=== PATIENT | male | born 1955 | race Caucasian/White ===

== ENCOUNTER 2017-04-12 10:25 | Day surgery (SDC) | payer BC ==
[2017-04-12] MEDS ORDERED: Sodium Chloride 0.9% 10 ML Syringe FLUSH PRN (10:30)
[2017-04-12] MEDS ORDERED: Lactated Ringers 1,000 ML IV SCH (10:30)
[2017-04-12] MEDS ORDERED: fentaNYL 100 MCG/2 ML SDV ONE ×2 (11:55→12:03)
[2017-04-12] MEDS ORDERED: Midazolam 1 MG/ML 2 ML SDV ONE ×2 (11:55→12:03)
[2017-04-12] MEDS ORDERED: Propofol 200 MG/20 ML SDV ONE ×2 (11:56→12:03)
[2017-04-12] MEDS ORDERED: ceFAZolin 1 GM Vial ONE (12:03)
--- NOTE | 2017-04-12 12:03 | PCM.PN ---
- General Info Date of Service: 04/12/17 - Review of Systems Systems Review Comment:: 61-year-old male referred by Osmin Eng for colonoscopy. The patient states it is been several years since his last colonoscopy. He has been noted to have a change in bowel habits recently. He is medically stable to proceed today. His recent history and physical is reviewed and there is no significant change in that compared to today. I have discussed the proposed colonoscopy with the patient. He agrees to proceed accepting risks. - Patient Data Vitals - Most Recent: Last Vital Signs Temp 97.8 F 04/12/17 10:44 Pulse Resp 18 04/12/17 10:44 BP 118/62 04/12/17 10:44 Pulse Ox 96 04/12/17 10:44 Weight - Most Recent: 120.202 kg Lab Results Last 24 Hours: Laboratory Results - last 24 hr 04/12/17 Range/Units 10:35 POC Glucose 102 (65-110) mg/dl Med Orders - Current: Current Medications Lactated Ringer's (Ringers, Lactated) 1,000 mls @ 70 mls/hr IV ASDIRECTED FRANCO Last Admin: 04/12/17 10:46 Dose: 70 mls/hr Sodium Chloride (Saline Flush) 10 ml FLUSH ASDIRECTED PRN PRN Reason: Keep Vein Open Discontinued Medications Fentanyl (Sublimaze) Confirm Administered Dose 100 mcg .ROUTE .STK-MED ONE Stop: 04/12/17 11:56 Midazolam HCl (Versed 1 Mg/Ml) Confirm Administered Dose 2 mg .ROUTE .STK-MED ONE Stop: 04/12/17 11:56 Propofol (Diprivan 20 Ml) Confirm Administered Dose 200 mg .ROUTE .STK-MED ONE Stop: 04/12/17 11:57 - Problem List Review Problem List Initiated/Reviewed/Updated: Yes - Assessment Assessment:: Change in bowel habits - Plan Plan:: Colonoscopy
--- NOTE | 2017-04-12 12:48 | PCM.OPNOTE ---
- General Post-Op/Procedure Note Date of Surgery/Procedure: 04/12/17 Operative Procedure(s): Colonoscopy with polypectomy Findings: Small ascending colon polyp Moderate diverticulosis Pre Op Diagnosis: Change in bowel habits Post-Op Diagnosis: Colon polyp. Diverticulosis Anesthesia Technique: MAC Primary Surgeon: Amor Castorena Pathology: colon polyp Output, Urine Amount: 0 EBL in mLs: 0 Complications: None Condition: Good
[2017-04-12 13:36] VITALS: BP 109/69
--- NOTE | 2017-04-13 13:18 | OR ---
Date of Procedure: 04/12/2017 PREOPERATIVE DIAGNOSIS: Change in bowel habits. POSTOPERATIVE DIAGNOSES: 1. Colon polyp. 2. Diverticulosis. OPERATION PERFORMED: Colonoscopy with polypectomy. INDICATIONS FOR SURGERY: This 61-year-old male was referred for colonoscopy. It has been several years since his last colon exam and it is noted that he has had a recent change in bowel habits. He was evaluated and felt to be medically stable to proceed with colonoscopy. FINDINGS: The patient has a single ascending colon polyp which is 7 mm and sessile in configuration. He also has a moderate degree of diverticulosis, mainly in the sigmoid area, but with scattered diverticula in the transverse and descending colon as well. This does not appear to be acutely inflamed otherwise complicated. DESCRIPTION OF PROCEDURE: The patient was taken to the operating room. He was given intravenous sedation, and with him in the left lateral decubitus position, digital rectal exam was performed, showing no rectal masses. The Olympus colonoscope was inserted into the rectum. A retroflexed examination of the rectal canal was performed. The scope was then carefully advanced under direct visualization through the entire length of the colon until the cecum was reached. Cecal acquisition was confirmed by noting the normal internal cecal anatomy including the appendiceal orifice and ileocecal valve and also cannulating the ileocecal valve and examining the distal portion of the terminal ilium. The light was also noted to transilluminate the abdominal wall and the right lower quadrant. After carefully examining the cecum, the scope was slowly withdrawn, and in the ascending colon, the above-described polyp was identified. This was removed with a cautery snare and retrieved into a polyp trap. Withdrawal of the scope was continued until the entire colon and rectum had been fully re-examined. With no sign of any complicating process, the scope was removed and the patient was taken from the operating room in satisfactory condition. ESTIMATED BLOOD LOSS: Zero. COMPLICATIONS: None. PROGNOSIS: Good. SAMUEL Castorena MD /[id number]
== END 2017-04-12 14:15 | disposition home or self-care (01) ==
LOC: LL.SDS 10:25
PROVIDERS: ATTEND Surgery
DX: D12.2 Benign neoplasm of ascending colon (principal); K57.30 Diverticulosis of large intestine without perforation or abscess without bleeding; E11.42 Type 2 diabetes mellitus with diabetic polyneuropathy; Z90.49 Acquired absence of other specified parts of digestive tract; Z96.651 Presence of right artificial knee joint; Z79.82 Long term (current) use of aspirin; Z79.899 Other long term (current) drug therapy
CPT/HCPCS: 45385; 82962; J0690; J2250; J2704; J3010; J7120

== ENCOUNTER 2017-05-08 19:46 | Emergency (ER) | payer BC ==
[2017-05-08 20:00] VITALS: BP 138/69
[2017-05-08] MEDS ORDERED: methylPREDNISolone Acetate 80 MG/ML SDV IM ONE (20:06)
--- NOTE | 2017-05-08 20:06 | EDM.PDOC ---
ED HPI GENERAL MEDICAL PROBLEM - General Chief Complaint: Lower Extremity Injury/Pain Stated Complaint: right ankle pain Time Seen by Provider: 05/08/17 19:55 Source of Information: Reports: Patient, Family (), Old Records ([facility] chart/EMR) - History of Present Illness INITIAL COMMENTS - FREE TEXT/NARRATIVE: Patient was brought to the emergency room via private automobile by his for evaluation of progressive nonspecific sharp 8/10 mostly posterior right ankle pain. Symptoms started at about 15:20 hours this afternoon with no treatment to this point. Patient has not injured this extremity in the past, although he does have a known history of osteoarthritis, however no history significant gout attacks. He has started to use crutches for his pain control with no history of acute injury, fall, paresthesias, neurological deficits, etc. The patient denies any chest pain/pressure, heart flutter, dizziness, orthostasis, orthopnea, diaphoresis, paresthesias, recent decreased exercise tolerance, or any other anginal-type symptoms. No recent history of abdominal pain, heartburn, nausea, diarrhea, melena, gross hematochezia, or any food intolerance, including fatty foods, etc.. The patient also denies any recent fever, cough, wheezing, dyspnea, etc.. Onset: Today, Gradual Onset Date: 05/08/17 Onset Time: 15:20 Duration: Constant, Getting Worse Location: Reports: Lower Extremity, Right. Denies: Radiates to Quality: Reports: Ache, Same as Previous Episode, Sharp Severity: Moderate Improves with: Reports: Rest Worsens with: Reports: Movement Context: Reports: Other (None) Associated Symptoms: Denies: Confusion, Chest Pain, Cough, Diaphoresis, Fever/ Chills, Nausea/Vomiting, Shortness of Breath, Syncope, Weakness Treatments PICTURE ENGRAVER: Reports: Other (see below) (None) Right Ankle Pain Score (Numeric/FACES): 3 (13 at rest with 8/10 pain with weightbearing) - Related Data Allergies Allergy/AdvReac Type Severity Reaction Status Date / Time No Known Allergies Allergy Verified 05/08/17 19:52 Home Meds: Home Meds Aspirin [Halfprin] 81 mg PO DAILY 06/25/14 [History] Fosinopril [Monopril] 10 mg PO DAILY 06/25/14 [History] Glimepiride [Amaryl] 1 mg PO DAILY 06/25/14 [History] Multivitamin [One-A-Day Essential] 1 tab PO DAILY 06/25/14 [History] Ubidecarenone [Co Q-10] 50 mg PO BID 06/25/14 [History] atorvaSTATin [Lipitor] 10 mg PO BEDTIME 06/25/14 [History] Past Medical History HEENT History: Reports: Impaired Vision, Other (See Below) Other HEENT History: Patient wears glasses Cardiovascular History: Reports: Arrhythmia, High Cholesterol, Hypertension, Other (See Below) Other Cardiovascular History: Complete right bundle branch block/bifascicular bundle-branch block; dyslipidemia Respiratory History: Reports: Intubation, Previous, Sleep Apnea, Other (See Below) Other Respiratory History: Patient has been compliant with his CPAP Gastrointestinal History: Reports: Colon Polyp, Diverticulosis, Other (See Below ) Other Gastrointestinal History: Moderate diverticulosis by colonoscopy with excision of tubular adenoma from the ascending colon on 04/12/17 Genitourinary History: Reports: Other (See Below) Other Genitourinary History: 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 Musculoskeletal History: Reports: Arthritis, Gout, Osteoarthritis, Other (See Below) Other Musculoskeletal History: 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 attacks in a: 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 Neurological History: Reports: Neuropathy, Diabetic, Neuropathy, Peripheral, Seizure, Other (See Below) Other Neuro History: Febrile seizures as a child; restless leg syndrome Psychiatric History: Reports: ADD, ADHD, Anxiety, Depression, Other (See Below) Other Psychiatric History: History of childhood anxiety depression disorder Endocrine/Metabolic History: Reports: Diabetes, Type II - Past Surgical History HEENT Surgical History: Reports: Adenoidectomy, Tonsillectomy, Other (See Below) Other HEENT Surgeries/Procedures: Tonsillectomy and adenoidectomy as a child GI Surgical History: Reports: Appendectomy, Colonoscopy, Hernia, Abdominal, Polypectomy, Other (See Below) Other GI Surgeries/Procedures: Appendectomy at age 11; last colonoscopy on with removal of tubular adenoma from the ascending colon with previous colonoscopy on 11/15/06: Umbilical hernia repair on 06/25/14 Musculoskeletal Surgical History: Reports: Arthroscopic Knee, Arthroscopic Procedure, Knee Replacement, Other (See Below). Denies: Joint Replacement, ORIF Other Musculoskeletal Surgeries/Procedures:: Right arthroscopic knee surgery in 2004 with left arthroscopic knee surgery in 2001; right knee total arthroplasty on 12/04/16 with left knee total arthroplasty on 04/27/16 - Past Imaging History Past Imaging History: Reports: MRI (MRI of the right knee on 04/22/13; MRI of the left knee on 04/29/13), Sleep Study (08/29/06), Stress Testing (Cardiolite stress test on 10/04/06 with ejection fraction of 52%), Venous Doppler (Venous Doppler study of the left leg on 08/18/16) Social & Family History - Family History Musculoskeletal: Reports: Osteoarthritis, Other (See Below) Other Musculoskeletal Family History: Mother with osteoarthritis Neurological: Reports: Parkinson's, Seizure, Other (See Below) Other Neurological Family History: Paternal grandfather with Parkinson's disease ; son with febrile seizures and subsequently childhood epilepsy Psychiatric: Reports: Anxiety, Depression, Suicide Attempt, Other (See Below) Other Psychiatric Family History: Son with possible anxiety depression disorder ; father with anxiety depression disorder and successful suicide at age 45 Endocrine/Metabolic: Reports: Diabetes, type II, Other (See Below) Other Endocrine/Metabolic Family History: Sister with diabetes mellitus - Tobacco Use Smoking Status *Q: Never Smoker Used Tobacco, but Quit: No Smoking Cessation Information Provided To Patient: No Second Hand Smoke Exposure: No - Alcohol Use Alcohol Use History: Yes Days Per Week of Alcohol Use: 0 Number of Drinks Per Day: 1 (Very occasional, one drink per year) Total Drinks Per Week: 0 Alcohol Use Frequency: Rarely - Recreational Drug Use Recreational Drug Use: No Drug Use in Last 12 Months: No - Living Situation & Occupation Living situation: Reports: (1977, 2 children) 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 ED EXAM, GENERAL - Physical Exam Exam: See Below Exam Limited By: No Limitations General Appearance: Alert, WD/WN, No Apparent Distress Head: Atraumatic Neck: Normal Inspection, Supple, Non-Tender, Full Range of Motion. No: Lymphadenopathy (L), Lymphadenopathy (R), Thyromegaly Respiratory/Chest: No Respiratory Distress, Lungs Clear, Normal Breath Sounds, No Accessory Muscle Use, Chest Non-Tender. No: Pleural Rub, Retractions Cardiovascular: Normal Peripheral Pulses, Regular Rate, Rhythm, No Edema, No Gallop, No JVD, No Murmur, No Rub. No: Gallop/S3, Gallop/S4, Friction Rub Peripheral Pulses: 2+: Radial (L), Radial (R), Dorsalis Pedis (L), Dorsalis Pedis (R) GI/Abdominal: Normal Bowel Sounds, Soft, Non-Tender, No Organomegaly, No Distention, No Abnormal Bruit, No Mass, Pelvis Stable, Other (Obese) (Male) Exam: Deferred Rectal (Males) Exam: Deferred Back Exam: Normal Inspection, Full Range of Motion. No: CVA Tenderness (L), CVA Tenderness (R), Muscle Spasm Extremities: Normal Range of Motion, No Pedal Edema, Normal Capillary Refill, Leg Pain (Mild palpation pain over the Achilles tendon with no evidence of tear , swelling, lesion, local warming, etc.; no joint instability in the ankle, etc. ; Mild pain with ambulation). No: Joint Swelling, Nicholas's Sign Neurological: Alert, Oriented, CN II-XII Intact, Normal Cognition, Normal Gait, No Motor/Sensory Deficits Psychiatric: Normal Affect, Normal Mood Skin Exam: Warm, Dry, Intact, Normal Color, No Rash. No: Diaphoretic, Wound/ Incision Lymphatic: No Adenopathy Course - Vital Signs Last Recorded V/S: Last Vital Signs Temp 36.6 C 05/08/17 19:48 Pulse 73 05/08/17 19:59 Resp 18 05/08/17 19:48 BP 138/69 05/08/17 19:59 Pulse Ox 98 05/08/17 19:48 Vital Signs - 24 hr 05/08/17 05/08/17 19:48 19:59 Temperature [ 36.6 C Oral] Pulse, 71 73 Peripheral [ Right Brachial] Respiratory 18 Rate Blood Pressure 161/67 H 138/69 [Right Upper Arm] O2 Sat by Pulse 98 Oximetry - Orders/Labs/Meds Orders: Active Orders 24 hr Category Date Time Status Obtain Past Medical Record [OM.PC] Routine Oth 05/08/17 20:06 Active Labs: None Meds: Medications Discontinued Medications Generic Name Dose Route Start Last Admin Trade Name Freq PRN Reason Stop Dose Admin Methylprednisolone Acetate 80 mg 05/08/17 20:06 05/08/17 20:16 Depo-Medrol IM 05/08/17 20:07 80 mg ONETIME ONE Administration - Radiology Interpretation Free Text/Narrative:: None Departure - Departure Time of Disposition: 20:35 Disposition: Home, Self-Care 01 Condition: Good Clinical Impression: Acute right ankle pain Osteoarthritis Qualifiers: Osteoarthritis location: multiple joints Osteoarthritis type: primary Qualified Code(s): M15.0 - Primary generalized (osteo)arthritis Hypertension Qualifiers: Hypertension type: essential hypertension Qualified Code(s): I10 - Essential ( primary) hypertension Hyperlipidemia Qualifiers: Hyperlipidemia type: mixed hyperlipidemia Qualified Code(s): E78.2 - Mixed hyperlipidemia Diabetes mellitus Qualifiers: Diabetes mellitus type: type 2 Diabetes mellitus complication status: with neurologic complications Diabetes mellitus complication detail: with polyneuropathy Diabetes mellitus terminal make up operator insulin use: without usp use Qualified Code(s): E11.42 - Type 2 diabetes mellitus with diabetic polyneuropathy - Discharge Information Instructions: Low-Purine Diet, Gout, [id number], Methylprednisolone Solution for Injection, Gout, Tendinitis, [id number] Referrals: Osmin Olson PA [Primary Care Provider] - Forms: ED Department Discharge Additional Instructions: 1. Follow up with your regular provider in 10-14 days as needed, if symptoms persist. 2. Tylenol 650 mg by mouth every 4 hours and/or OTC ibuprofen 2-3 tabs by mouth every 6 hours with food as directed./needed. 3. BenGay or equivalent, heating pad, and/or ice packs as directed. 4. Advance activity as directed/tolerated - Problem List & Annotations (1) Acute right ankle pain SNOMED Code(s): 64922492762403 Code(s): M25.571 - PAIN IN RIGHT ANKLE AND JOINTS OF RIGHT FOOT Status: Acute Priority: High Current Visit: Yes Onset Date: 05/08/17 Annotation/ Comment:: Various therapeutic options were discussed with the patient and his , including IM Toradol, x-rays, blood work, etc. They wish to delay these treatments and evaluation for now, however he does agree to recommended IM Depo- Medrol injection. Symptomatically as per discharge instructions. Consider x-rays , uric acid level, rheumatoid factor, MANDI, etc., if symptoms remain refractory to therapy. Patient does have a known history of hyperuricemia, although no previous problems with gout, etc.. She was counseled on gout diet with information provided. Activity restrictions discussed. He does not need a work excuse. Once again no recent acute trauma, etc. (2) Hyperlipidemia SNOMED Code(s): 75676807 Code(s): E78.5 - HYPERLIPIDEMIA, UNSPECIFIED Status: Chronic Priority: Medium Current Visit: Yes Annotation/Comment:: Currently under therapy Qualifiers: Hyperlipidemia type: mixed hyperlipidemia Qualified Code(s): E78.2 - Mixed hyperlipidemia (3) Hypertension SNOMED Code(s): 75113582 Code(s): I10 - ESSENTIAL (PRIMARY) HYPERTENSION Status: Chronic Priority : Medium Current Visit: Yes Annotation/Comment:: Stable by history although blood pressure somewhat elevated initially. Continue to observe closely by his regular provider with improved blood pressures prior to discharge without treatment. Qualifiers: Hypertension type: essential hypertension Qualified Code(s): I10 - Essential (primary) hypertension (4) Osteoarthritis SNOMED Code(s): 475949881 Code(s): M19.90 - UNSPECIFIED OSTEOARTHRITIS, UNSPECIFIED SITE Status: Chronic Priority: Medium Current Visit: Yes Annotation/Comment:: Otherwise stable by history Qualifiers: Osteoarthritis location: multiple joints Osteoarthritis type: primary Qualified Code(s): M15.0 - Primary generalized (osteo)arthritis (5) Diabetes mellitus SNOMED Code(s): 41134795 Code(s): E11.9 - TYPE 2 DIABETES MELLITUS WITHOUT COMPLICATIONS Status: Chronic Priority: Medium Current Visit: Yes Annotation/Comment:: Stable by history with recent normal glycosylated hemoglobin by his regular provider Qualifiers: Diabetes mellitus type: type 2 Diabetes mellitus complication status: with neurologic complications Diabetes mellitus complication detail: with polyneuropathy Diabetes mellitus terminal make up operator insulin use: without usp use Qualified Code(s): E11.42 - Type 2 diabetes mellitus with diabetic polyneuropathy - Problem List Review Problem List Initiated/Reviewed/Updated: Yes - My Orders Last 24 Hours: My Active Orders 05/08/17 20:06 Obtain Past Medical Record [OM.PC] Routine - Assessment/Plan Last 24 Hours: My Active Orders 05/08/17 20:06 Obtain Past Medical Record [OM.PC] Routine Assessment:: As above Plan: As above. Extensive precautions were given to the patient and his , who are in agreement with the treatment plan. See Patient Instructions for further treatment and plan.
== END 2017-05-08 20:35 | disposition home or self-care (01) ==
LOC: LL.ED 19:46
DX: M25.571 Pain in right ankle and joints of right foot (principal); M15.0 Primary generalized (osteo)arthritis; I10 Essential (primary) hypertension; E78.2 Mixed hyperlipidemia; E11.42 Type 2 diabetes mellitus with diabetic polyneuropathy; E78.00 Pure hypercholesterolemia, unspecified; G47.30 Sleep apnea, unspecified; Z79.82 Long term (current) use of aspirin; Z79.84 Long term (current) use of oral hypoglycemic drugs; Z79.899 Other long term (current) drug therapy
CPT/HCPCS: 96372; 99284; J1040

== ENCOUNTER 2022-07-06 11:34 | Day surgery (SDC) | payer MEDICARE, OTHER ==
[~2022-07-06 11:34] MED LIST: Lactated Ringers 1,000 ML IV SCH; Midazolam 1 MG/ML 2 ML SDV ONE; Propofol 200 MG/20 ML SDV ONE; Sodium Chloride 0.9% 10 ML Syringe FLUSH PRN
[2022-07-06 14:35] VITALS: BP 116/78; PULSE 63
== END 2022-07-06 14:30 | disposition home or self-care (01) ==
LOC: LL.SDS 11:34
PROVIDERS: ATTEND Surgery
DX: Z12.11 Encounter for screening for malignant neoplasm of colon (principal); I10 Essential (primary) hypertension; E78.2 Mixed hyperlipidemia; E11.9 Type 2 diabetes mellitus without complications; G47.33 Obstructive sleep apnea (adult) (pediatric); K21.9 Gastro-esophageal reflux disease without esophagitis; M19.90 Unspecified osteoarthritis, unspecified site; E66.9 Obesity, unspecified; Z86.010 Personal history of colon polyps; Z79.899 Other long term (current) drug therapy; Z79.82 Long term (current) use of aspirin; Z96.652 Presence of left artificial knee joint; Z68.30 Body mass index [BMI] 30.0-30.9, adult
CPT/HCPCS: 00812; J2250; J2704; J7120